=== PATIENT | male | born 1930 | race Caucasian/White ===

== ENCOUNTER 2021-04-15 18:44 | Inpatient (IN) ==
[2021-04-15] MEDS ORDERED: dimenhyDRINATE 50 MG TABLET PO PRN (20:56)
[2021-04-16] MEDS: *HR* Enoxaparin 40 MG/0.4 ML SYRINGE SQ SCH (06:49)
[2021-04-16 07:25] LABS: Basophils % 0.5 %; Eosinophils # 0.1 K/mcL (0.0-0.6); Eosinophils % 1.8 %; Immature Granulocytes % 0.3 % (0-4); Lymphocytes # 0.7 K/mcL (0.6-4.6); Lymphocytes % 8.9 %; Mean Corpuscular HGB Conc 31.9 g/dL (31.6-35.5); Mean Corpuscular Hemoglobin 28.5 pg (28.0-33.3); Mean Corpuscular Volume 89.2 fL (83.0-100.0); Mean Platelet Volume 9.6 fL (9.4-12.4); Monocytes # 0.6 K/mcL (0.0-1.3); Monocytes % 8.4 %; Neutrophils # 6.1 K/mcL (1.6-8.9); Platelet Count 378 K/mcL (140-400); Red Blood Count 5.27 M/mcL (4.19-5.50); Red Cell Distribution Width 12.9 % (11.5-14.5); Segmented Neutrophils % 80.1 %; White Blood Count 7.6 K/mcL (4.3-11.1)
[2021-04-16 08:32] LABS: VBG Chloride 108 mEq/L (98-107)
[2021-04-16 09:06] LABS: BUN/Creatinine Ratio 38 (6-26); Blood Urea Nitrogen 33 mg/dL (8-23); Carbon Dioxide 34 mEq/L (23-29); Glucose 92 mg/dL (70-105); eGFR For African Americans > 60 (> 60); eGFR For Non-African Americans > 60 (> 60)
[2021-04-16] MEDS: Lisinopril-HCTZ 20-12.5mg TABLET PO SCH (09:24)
[2021-04-16] MEDS: amLODIPine 5 MG TABLET PO SCH (09:25)
[2021-04-16] MEDS: Aspirin 81 MG TAB.CHEW PO SCH (09:25)
[2021-04-16] MEDS: Patient Taking Own Medication 1 EACH PO SCH (09:25)
[2021-04-16] MEDS: Multivit/Ca/Min/Fe/FA 1 TAB TABLET PO SCH (09:25)
[2021-04-16] MEDS ORDERED: D5% in Lactated Ringers 1,000 ML IVC SCH (14:15)
[2021-04-16] MEDS: D5% in 0.45% NACL w KCl 20 MEQ/1,000 ML MLS IVC SCH (15:04)
[2021-04-17] MEDS: D5% in 0.45% NACL w KCl 20 MEQ/1,000 ML MLS IVC SCH ×2 (05:45→19:36)
[2021-04-17] MEDS: *HR* Enoxaparin 40 MG/0.4 ML SYRINGE SQ SCH (06:47)
[2021-04-17 07:00] LABS: BUN/Creatinine Ratio 38 (6-26); Blood Urea Nitrogen 30 mg/dL (8-23); Calcium 8.8 mg/dL (8.6-10.3); Carbon Dioxide 32 mEq/L (23-29); Chloride 104 mEq/L (98-107); Glucose 95 mg/dL (70-105); Osmolality,Calculated 302 (280-300); Potassium 3.3 mEq/L (3.5-5.1); Sodium 143 mEq/L (136-145); eGFR For African Americans > 60 (> 60); eGFR For Non-African Americans > 60 (> 60)
[2021-04-17] MEDS: Aspirin 81 MG TAB.CHEW PO SCH (08:49)
[2021-04-17] MEDS: amLODIPine 5 MG TABLET PO SCH (08:49)
[2021-04-17] MEDS: Multivit/Ca/Min/Fe/FA 1 TAB TABLET PO SCH (08:49)
[2021-04-17] MEDS: Lisinopril-HCTZ 20-12.5mg TABLET PO SCH (08:49)
[2021-04-17] MEDS: Patient Taking Own Medication 1 EACH PO SCH (10:01)
[2021-04-18] MEDS: *HR* Enoxaparin 40 MG/0.4 ML SYRINGE SQ SCH (05:11)
[2021-04-18] MEDS: D5% in 0.45% NACL w KCl 20 MEQ/1,000 ML MLS IVC SCH ×2 (05:11→23:07)
[2021-04-18] MEDS: Patient Taking Own Medication 1 EACH PO SCH (08:14)
[2021-04-18] MEDS: Multivit/Ca/Min/Fe/FA 1 TAB TABLET PO SCH (08:15)
[2021-04-18] MEDS: Aspirin 81 MG TAB.CHEW PO SCH (08:15)
[2021-04-18] MEDS: Lisinopril-HCTZ 20-12.5mg TABLET PO SCH (08:15)
[2021-04-18] MEDS: amLODIPine 5 MG TABLET PO SCH (08:15)
[2021-04-18 08:28] LABS: BUN/Creatinine Ratio 29 (6-26); Blood Urea Nitrogen 21 mg/dL (8-23); Calcium 8.6 mg/dL (8.6-10.3); Carbon Dioxide 30 mEq/L (23-29); Chloride 107 mEq/L (98-107); Glucose 104 mg/dL (70-105); Osmolality,Calculated 299 (280-300); Potassium 3.7 mEq/L (3.5-5.1); Sodium 143 mEq/L (136-145); eGFR For African Americans > 60 (> 60); eGFR For Non-African Americans > 60 (> 60)
[2021-04-19] MEDS: *HR* Enoxaparin 40 MG/0.4 ML SYRINGE SQ SCH (06:42)
[2021-04-19] MEDS: amLODIPine 5 MG TABLET PO SCH (09:29)
[2021-04-19] MEDS: Lisinopril-HCTZ 20-12.5mg TABLET PO SCH (09:29)
[2021-04-19] MEDS: Aspirin 81 MG TAB.CHEW PO SCH (09:29)
[2021-04-19] MEDS: Multivit/Ca/Min/Fe/FA 1 TAB TABLET PO SCH (09:30)
[2021-04-19] MEDS: Patient Taking Own Medication 1 EACH PO SCH (09:30)
[2021-04-19] MEDS: D5% in 0.45% NACL w KCl 20 MEQ/1,000 ML MLS IVC SCH ×2 (12:01→22:54)
[2021-04-20] MEDS: *HR* Enoxaparin 40 MG/0.4 ML SYRINGE SQ SCH (06:54)
[2021-04-20 07:52] LABS: BUN/Creatinine Ratio 25 (6-26); Blood Urea Nitrogen 19 mg/dL (8-23); Calcium 8.3 mg/dL (8.6-10.3); Carbon Dioxide 27 mEq/L (23-29); Chloride 106 mEq/L (98-107); Glucose 100 mg/dL (70-105); Osmolality,Calculated 288 (280-300); Potassium 3.4 mEq/L (3.5-5.1); Sodium 138 mEq/L (136-145); eGFR For African Americans > 60 (> 60); eGFR For Non-African Americans > 60 (> 60)
[2021-04-20] MEDS: Aspirin 81 MG TAB.CHEW PO SCH (08:29)
[2021-04-20] MEDS: Lisinopril-HCTZ 20-12.5mg TABLET PO SCH (08:29)
[2021-04-20] MEDS: Multivit/Ca/Min/Fe/FA 1 TAB TABLET PO SCH (08:29)
[2021-04-20] MEDS: amLODIPine 5 MG TABLET PO SCH (08:30)
[2021-04-20] MEDS: Patient Taking Own Medication 1 EACH PO SCH (08:30)
[2021-04-20] MEDS: Potassium Chloride Elixir 20 MEQ/15 ML UDC PO SCH (12:39)
[2021-04-21] MEDS: *HR* Enoxaparin 40 MG/0.4 ML SYRINGE SQ SCH (05:56)
[2021-04-21] MEDS: Aspirin 81 MG TAB.CHEW PO SCH (09:33)
[2021-04-21] MEDS: Lisinopril-HCTZ 20-12.5mg TABLET PO SCH (09:33)
[2021-04-21] MEDS: Potassium Chloride Elixir 20 MEQ/15 ML UDC PO SCH (09:34)
[2021-04-21] MEDS: Patient Taking Own Medication 1 EACH PO SCH (09:34)
[2021-04-21] MEDS: amLODIPine 5 MG TABLET PO SCH (09:34)
[2021-04-21] MEDS: Multivit/Ca/Min/Fe/FA 1 TAB TABLET PO SCH (09:34)
[2021-04-22] MEDS: *HR* Enoxaparin 40 MG/0.4 ML SYRINGE SQ SCH (06:04)
[2021-04-22] MEDS: Lisinopril-HCTZ 20-12.5mg TABLET PO SCH (08:46)
[2021-04-22] MEDS: Multivit/Ca/Min/Fe/FA 1 TAB TABLET PO SCH (08:47)
[2021-04-22] MEDS: amLODIPine 5 MG TABLET PO SCH (08:47)
[2021-04-22] MEDS: Aspirin 81 MG TAB.CHEW PO SCH (08:47)
[2021-04-22] MEDS: Patient Taking Own Medication 1 EACH PO SCH (08:47)
[2021-04-22] MEDS: Potassium Chloride Elixir 20 MEQ/15 ML UDC PO SCH (08:48)
[2021-04-23] MEDS: *HR* Enoxaparin 40 MG/0.4 ML SYRINGE SQ SCH (05:45)
[2021-04-23] MEDS: Multivit/Ca/Min/Fe/FA 1 TAB TABLET PO SCH (10:41)
[2021-04-23] MEDS: Aspirin 81 MG TAB.CHEW PO SCH (10:41)
[2021-04-23] MEDS: Potassium Chloride Elixir 20 MEQ/15 ML UDC PO SCH (10:42)
[2021-04-23] MEDS: Lisinopril-HCTZ 20-12.5mg TABLET PO SCH (10:42)
[2021-04-23] MEDS: amLODIPine 5 MG TABLET PO SCH (10:42)
[2021-04-23] MEDS: Patient Taking Own Medication 1 EACH PO SCH (10:43)
[2021-04-24] MEDS: *HR* Enoxaparin 40 MG/0.4 ML SYRINGE SQ SCH (06:25)
[2021-04-24] MEDS: Patient Taking Own Medication 1 EACH PO SCH (09:45)
[2021-04-24] MEDS: Aspirin 81 MG TAB.CHEW PO SCH (10:01)
[2021-04-24] MEDS: Potassium Chloride Elixir 20 MEQ/15 ML UDC PO SCH (10:01)
[2021-04-24] MEDS: Lisinopril-HCTZ 20-12.5mg TABLET PO SCH (10:02)
[2021-04-24] MEDS: amLODIPine 5 MG TABLET PO SCH (10:02)
[2021-04-24] MEDS: Multivit/Ca/Min/Fe/FA 1 TAB TABLET PO SCH (10:02)
[2021-04-25] MEDS: Potassium Chloride Elixir 20 MEQ/15 ML UDC PO SCH (07:37)
[2021-04-25] MEDS: Lisinopril-HCTZ 20-12.5mg TABLET PO SCH (07:37)
[2021-04-25] MEDS: Aspirin 81 MG TAB.CHEW PO SCH (07:37)
[2021-04-25] MEDS: *HR* Enoxaparin 40 MG/0.4 ML SYRINGE SQ SCH (07:37)
[2021-04-25] MEDS: Multivit/Ca/Min/Fe/FA 1 TAB TABLET PO SCH (07:38)
[2021-04-25] MEDS: amLODIPine 5 MG TABLET PO SCH (07:38)
[2021-04-25] MEDS: Patient Taking Own Medication 1 EACH PO SCH (07:39)
[2021-04-25 07:56] LABS: Hematocrit 42.8 % (37.5-50.1); Hemoglobin 13.7 g/dL (12.9-16.9); Mean Corpuscular Hemoglobin 28.1 pg (28.0-33.3); Mean Corpuscular Volume 87.9 fL (83.0-100.0); Mean Platelet Volume 10.4 fL (9.4-12.4); Platelet Count 361 K/mcL (140-400); Red Blood Count 4.87 M/mcL (4.19-5.50); Red Cell Distribution Width 13.2 % (11.5-14.5)
[2021-04-25 08:18] LABS: BUN/Creatinine Ratio 37 (6-26); Blood Urea Nitrogen 30 mg/dL (8-23); Calcium 8.9 mg/dL (8.6-10.3); Carbon Dioxide 29 mEq/L (23-29); Chloride 110 mEq/L (98-107); Glucose 90 mg/dL (70-105); Magnesium 1.8 mg/dL (1.6-2.6); Osmolality,Calculated 306 (280-300); Potassium 3.5 mEq/L (3.5-5.1); Sodium 145 mEq/L (136-145); eGFR For African Americans > 60 (> 60); eGFR For Non-African Americans > 60 (> 60)
[2021-04-26] MEDS: Lisinopril-HCTZ 20-12.5mg TABLET PO SCH (10:35)
[2021-04-26] MEDS: Aspirin 81 MG TAB.CHEW PO SCH (10:36)
[2021-04-26] MEDS: Multivit/Ca/Min/Fe/FA 1 TAB TABLET PO SCH (10:36)
[2021-04-26] MEDS: Patient Taking Own Medication 1 EACH PO SCH (10:37)
[2021-04-26] MEDS: Potassium Chloride Elixir 20 MEQ/15 ML UDC PO SCH (10:38)
[2021-04-26] MEDS: amLODIPine 5 MG TABLET PO SCH (10:38)
[2021-04-26] MEDS: *HR* Enoxaparin 40 MG/0.4 ML SYRINGE SQ SCH (10:39)
[2021-04-27] MEDS: *HR* Enoxaparin 40 MG/0.4 ML SYRINGE SQ SCH (06:54)
[2021-04-27] MEDS: Patient Taking Own Medication 1 EACH PO SCH (08:04)
[2021-04-27] MEDS: amLODIPine 5 MG TABLET PO SCH (08:06)
[2021-04-27] MEDS: Potassium Chloride Elixir 20 MEQ/15 ML UDC PO SCH (08:06)
[2021-04-27] MEDS: Aspirin 81 MG TAB.CHEW PO SCH (08:07)
[2021-04-27] MEDS: Lisinopril-HCTZ 20-12.5mg TABLET PO SCH (08:07)
[2021-04-28] MEDS: *HR* Enoxaparin 40 MG/0.4 ML SYRINGE SQ SCH (05:58)
[2021-04-28] MEDS: Patient Taking Own Medication 1 EACH PO SCH (08:33)
[2021-04-28] MEDS: amLODIPine 5 MG TABLET PO SCH (08:41)
[2021-04-28] MEDS: Aspirin 81 MG TAB.CHEW PO SCH (08:41)
[2021-04-28] MEDS: Potassium Chloride Elixir 20 MEQ/15 ML UDC PO SCH (08:41)
[2021-04-28] MEDS: Lisinopril-HCTZ 20-12.5mg TABLET PO SCH (08:41)
[2021-04-29] MEDS: *HR* Enoxaparin 40 MG/0.4 ML SYRINGE SQ SCH (05:47)
[2021-04-29 07:34] LABS: BUN/Creatinine Ratio 36 (6-26); Blood Urea Nitrogen 32 mg/dL (8-23); Carbon Dioxide 29 mEq/L (23-29); Chloride 111 mEq/L (98-107); Glucose 90 mg/dL (70-105); Osmolality,Calculated 312 (280-300); Potassium 3.7 mEq/L (3.5-5.1); Sodium 148 mEq/L (136-145); eGFR For African Americans > 60 (> 60); eGFR For Non-African Americans > 60 (> 60)
[2021-04-29] MEDS: Potassium Chloride Elixir 20 MEQ/15 ML UDC PO SCH (08:02)
[2021-04-29] MEDS: Lisinopril-HCTZ 20-12.5mg TABLET PO SCH (08:02)
[2021-04-29] MEDS: amLODIPine 5 MG TABLET PO SCH (08:02)
[2021-04-29] MEDS: Aspirin 81 MG TAB.CHEW PO SCH (08:02)
[2021-04-29] MEDS: Patient Taking Own Medication 1 EACH PO SCH (08:03)
[2021-04-29 09:45] LABS: Hemoglobin 14.8 g/dL (12.9-16.9); Mean Corpuscular HGB Conc 31.5 g/dL (31.6-35.5); Mean Corpuscular Hemoglobin 28.2 pg (28.0-33.3); Mean Corpuscular Volume 89.7 fL (83.0-100.0); Platelet Count 346 K/mcL (140-400); Red Blood Count 5.24 M/mcL (4.19-5.50); Red Cell Distribution Width 13.4 % (11.5-14.5); White Blood Count 8.3 K/mcL (4.3-11.1)
[2021-04-30] MEDS: *HR* Enoxaparin 40 MG/0.4 ML SYRINGE SQ SCH (05:24)
[2021-04-30] MEDS: Lisinopril-HCTZ 20-12.5mg TABLET PO SCH (09:16)
[2021-04-30] MEDS: Aspirin 81 MG TAB.CHEW PO SCH (09:16)
[2021-04-30] MEDS: Patient Taking Own Medication 1 EACH PO SCH (09:16)
[2021-04-30] MEDS: amLODIPine 5 MG TABLET PO SCH (09:16)
[2021-04-30] MEDS: Potassium Chloride Elixir 20 MEQ/15 ML UDC PO SCH (09:16)
[2021-05-01] MEDS: *HR* Enoxaparin 40 MG/0.4 ML SYRINGE SQ SCH (06:03)
[2021-05-01] MEDS: Patient Taking Own Medication 1 EACH PO SCH (09:26)
[2021-05-01] MEDS: Lisinopril-HCTZ 20-12.5mg TABLET PO SCH ×2 (09:26→09:41)
[2021-05-01] MEDS: Aspirin 81 MG TAB.CHEW PO SCH (09:26)
[2021-05-01] MEDS: amLODIPine 5 MG TABLET PO SCH ×2 (09:26→09:42)
[2021-05-01] MEDS: Potassium Chloride Elixir 20 MEQ/15 ML UDC PO SCH (09:26)
[2021-05-01] MEDS ORDERED: 0.9 % Sodium Chloride 250 ML IVC ONE (09:40)
[2021-05-02] MEDS: *HR* Enoxaparin 40 MG/0.4 ML SYRINGE SQ SCH (05:14)
[2021-05-02] MEDS: Aspirin 81 MG TAB.CHEW PO SCH (10:30)
[2021-05-02] MEDS: Potassium Chloride Elixir 20 MEQ/15 ML UDC PO SCH (10:30)
[2021-05-02] MEDS: Patient Taking Own Medication 1 EACH PO SCH (10:31)
[2021-05-03] MEDS: *HR* Enoxaparin 40 MG/0.4 ML SYRINGE SQ SCH (05:55)
[2021-05-03] MEDS: Aspirin 81 MG TAB.CHEW PO SCH (08:57)
[2021-05-03] MEDS: Potassium Chloride Elixir 20 MEQ/15 ML UDC PO SCH (08:57)
[2021-05-03] MEDS: Lisinopril-HCTZ 20-12.5mg TABLET PO SCH (08:58)
[2021-05-03] MEDS: Patient Taking Own Medication 1 EACH PO SCH (08:58)
[2021-05-03] MEDS: amLODIPine 5 MG TABLET PO SCH (08:58)
[2021-05-04] MEDS: *HR* Enoxaparin 40 MG/0.4 ML SYRINGE SQ SCH (05:21)
[2021-05-04 08:08] LABS: Basophils # 0.1 K/mcL (0.0-0.2); Basophils % 0.6 %; Eosinophils # 0.4 K/mcL (0.0-0.6); Eosinophils % 4.4 %; Hematocrit 44.5 % (37.5-50.1); Hemoglobin 14.1 g/dL (12.9-16.9); Immature Granulocytes % 0.4 % (0-4); Lymphocytes # 0.8 K/mcL (0.6-4.6); Lymphocytes % 9.5 %; Mean Corpuscular HGB Conc 31.7 g/dL (31.6-35.5); Mean Corpuscular Volume 88.5 fL (83.0-100.0); Mean Platelet Volume 11.2 fL (9.4-12.4); Monocytes # 0.7 K/mcL (0.0-1.3); Monocytes % 9.1 %; Neutrophils # 6.2 K/mcL (1.6-8.9); Platelet Count 268 K/mcL (140-400); Red Blood Count 5.03 M/mcL (4.19-5.50); Red Cell Distribution Width 13.8 % (11.5-14.5); White Blood Count 8.1 K/mcL (4.3-11.1)
[2021-05-04 08:35] LABS: BUN/Creatinine Ratio 37 (6-26); Blood Urea Nitrogen 31 mg/dL (8-23); Calcium 8.7 mg/dL (8.6-10.3); Carbon Dioxide 27 mEq/L (23-29); Chloride 110 mEq/L (98-107); Glucose 87 mg/dL (70-105); Osmolality,Calculated 304 (280-300); Potassium 3.6 mEq/L (3.5-5.1); Sodium 144 mEq/L (136-145); eGFR For African Americans > 60 (> 60); eGFR For Non-African Americans > 60 (> 60)
[2021-05-04] MEDS: Lisinopril-HCTZ 20-12.5mg TABLET PO SCH (09:30)
[2021-05-04] MEDS: Potassium Chloride Elixir 20 MEQ/15 ML UDC PO SCH (09:30)
[2021-05-04] MEDS: amLODIPine 5 MG TABLET PO SCH (09:30)
[2021-05-04] MEDS: Patient Taking Own Medication 1 EACH PO SCH (09:30)
[2021-05-04] MEDS: Aspirin 81 MG TAB.CHEW PO SCH (09:30)
[2021-05-05] MEDS: *HR* Enoxaparin 40 MG/0.4 ML SYRINGE SQ SCH (05:02)
[2021-05-05] MEDS: Aspirin 81 MG TAB.CHEW PO SCH (09:16)
[2021-05-05] MEDS: Lisinopril-HCTZ 20-12.5mg TABLET PO SCH (09:17)
[2021-05-05] MEDS: amLODIPine 5 MG TABLET PO SCH (09:19)
[2021-05-05] MEDS: Patient Taking Own Medication 1 EACH PO SCH (09:19)
[2021-05-05] MEDS: Potassium Chloride Elixir 20 MEQ/15 ML UDC PO SCH ×2 (09:33→09:44)
[2021-05-06] MEDS: *HR* Enoxaparin 40 MG/0.4 ML SYRINGE SQ SCH ×2 (05:41→06:04)
[2021-05-06] MEDS: amLODIPine 5 MG TABLET PO SCH (08:44)
[2021-05-06] MEDS: Potassium Chloride Elixir 20 MEQ/15 ML UDC PO SCH (08:44)
[2021-05-06] MEDS: Lisinopril-HCTZ 20-12.5mg TABLET PO SCH (08:44)
[2021-05-06] MEDS: Patient Taking Own Medication 1 EACH PO SCH (08:44)
[2021-05-06] MEDS: Aspirin 81 MG TAB.CHEW PO SCH (08:44)
[2021-05-07] MEDS: *HR* Enoxaparin 40 MG/0.4 ML SYRINGE SQ SCH (05:51)
[2021-05-07] MEDS: Aspirin 81 MG TAB.CHEW PO SCH (07:33)
[2021-05-07] MEDS: amLODIPine 5 MG TABLET PO SCH (07:33)
[2021-05-07] MEDS: Potassium Chloride Elixir 20 MEQ/15 ML UDC PO SCH (07:34)
[2021-05-07] MEDS: Patient Taking Own Medication 1 EACH PO SCH (07:34)
[2021-05-07] MEDS: Lisinopril-HCTZ 20-12.5mg TABLET PO SCH (07:34)
[2021-05-08] MEDS: *HR* Enoxaparin 40 MG/0.4 ML SYRINGE SQ SCH (06:14)
[2021-05-08 08:23] LABS: Hematocrit 40.6 % (37.5-50.1); Hemoglobin 13.2 g/dL (12.9-16.9); Mean Corpuscular HGB Conc 32.5 g/dL (31.6-35.5); Mean Corpuscular Hemoglobin 28.3 pg (28.0-33.3); Mean Corpuscular Volume 86.9 fL (83.0-100.0); Mean Platelet Volume 10.7 fL (9.4-12.4); Platelet Count 261 K/mcL (140-400); Red Blood Count 4.67 M/mcL (4.19-5.50); White Blood Count 7.7 K/mcL (4.3-11.1)
[2021-05-08] MEDS: Lisinopril-HCTZ 20-12.5mg TABLET PO SCH (08:26)
[2021-05-08] MEDS: Aspirin 81 MG TAB.CHEW PO SCH (08:26)
[2021-05-08] MEDS: amLODIPine 5 MG TABLET PO SCH (08:26)
[2021-05-08] MEDS: Potassium Chloride Elixir 20 MEQ/15 ML UDC PO SCH (08:26)
[2021-05-08 08:46] LABS: BUN/Creatinine Ratio 28 (6-26); Blood Urea Nitrogen 22 mg/dL (8-23); Calcium 8.5 mg/dL (8.6-10.3); Carbon Dioxide 25 mEq/L (23-29); Chloride 110 mEq/L (98-107); Glucose 90 mg/dL (70-105); Osmolality,Calculated 299 (280-300); Potassium 3.4 mEq/L (3.5-5.1); Sodium 143 mEq/L (136-145); eGFR For African Americans > 60 (> 60); eGFR For Non-African Americans > 60 (> 60)
[2021-05-08] MEDS ORDERED: Hyoscyamine SL 0.125 MG TAB.SUBL SL PRN (11:01)
[2021-05-08] MEDS: Patient Taking Own Medication 1 EACH PO SCH (15:09)
[2021-05-09] MEDS: *HR* Enoxaparin 40 MG/0.4 ML SYRINGE SQ SCH (05:53)
[2021-05-09 07:55] VITALS: RESP 16; TEMP 98.5
[2021-05-09] MEDS: Aspirin 81 MG TAB.CHEW PO SCH (11:10)
[2021-05-09] MEDS: amLODIPine 5 MG TABLET PO SCH (11:10)
[2021-05-09] MEDS: Potassium Chloride Elixir 20 MEQ/15 ML UDC PO SCH (11:10)
[2021-05-09] MEDS: Patient Taking Own Medication 1 EACH PO SCH (11:10)
[2021-05-09] MEDS: Lisinopril-HCTZ 20-12.5mg TABLET PO SCH (11:10)
[2021-05-09] MEDS ORDERED: Isovue-370 500 ML BOTTLE IVP ONE (15:06)
[2021-05-09 16:32] LABS: Basophils # 0.1 K/mcL (0.0-0.2); Basophils % 0.8 %; Eosinophils # 0.3 K/mcL (0.0-0.6); Eosinophils % 3.8 %; Hematocrit 41.3 % (37.5-50.1); Hemoglobin 12.9 g/dL (12.9-16.9); Immature Granulocytes % 0.5 % (0-4); Lymphocytes # 0.6 K/mcL (0.6-4.6); Lymphocytes % 9.4 %; Mean Corpuscular HGB Conc 31.2 g/dL (31.6-35.5); Mean Corpuscular Hemoglobin 28.5 pg (28.0-33.3); Mean Corpuscular Volume 91.2 fL (83.0-100.0); Mean Platelet Volume 10.8 fL (9.4-12.4); Monocytes # 0.7 K/mcL (0.0-1.3); Monocytes % 9.9 %; Platelet Count 246 K/mcL (140-400); Red Blood Count 4.53 M/mcL (4.19-5.50); Red Cell Distribution Width 13.9 % (11.5-14.5); Segmented Neutrophils % 75.6 %; White Blood Count 6.6 K/mcL (4.3-11.1)
[2021-05-09 16:48] LABS: BUN/Creatinine Ratio 25 (6-26); Blood Urea Nitrogen 21 mg/dL (8-23); Calcium 8.2 mg/dL (8.6-10.3); Carbon Dioxide 25 mEq/L (23-29); Chloride 111 mEq/L (98-107); Glucose 116 mg/dL (70-105); Osmolality,Calculated 300 (280-300); Potassium 3.3 mEq/L (3.5-5.1); Sodium 143 mEq/L (136-145); eGFR For African Americans > 60 (> 60); eGFR For Non-African Americans > 60 (> 60)
[2021-05-09 19:17] VITALS: BP 117/70; PULSE 71; O2SAT 96
[2021-05-10] MEDS ORDERED: Megestrol Acetate 400 MG/10 ML UDC PO SCH (09:00)
== END 2021-05-09 22:50 | disposition short-term general hospital (02) ==
LOC: INPPIK 20:42
PROVIDERS: ADMIT Family Medicine; ATTEND Family Medicine

== ENCOUNTER 2021-05-12 22:43 | Inpatient (IN) ==
[2021-05-14] MEDS: Aspirin 81 MG TAB.CHEW PO SCH (08:22)
[2021-05-14] MEDS: amLODIPine 5 MG TABLET PO SCH (08:22)
[2021-05-14] MEDS: lisinopriL 20 MG TABLET PO SCH (08:22)
[2021-05-14] MEDS ORDERED: *HR* HYDROcodone/Acet 5/325 mg TABLET PO PRN (16:52)
[2021-05-15 07:11] LABS: Basophils % 0.5 %; Eosinophils # 0.4 K/mcL (0.0-0.6); Eosinophils % 4.9 %; Hematocrit 41.3 % (37.5-50.1); Hemoglobin 13.2 g/dL (12.9-16.9); Immature Granulocytes % 0.5 % (0-4); Lymphocytes # 0.6 K/mcL (0.6-4.6); Lymphocytes % 7.6 %; Mean Corpuscular Hemoglobin 28.1 pg (28.0-33.3); Mean Corpuscular Volume 87.9 fL (83.0-100.0); Mean Platelet Volume 10.2 fL (9.4-12.4); Monocytes # 0.5 K/mcL (0.0-1.3); Platelet Count 256 K/mcL (140-400); Red Cell Distribution Width 14.2 % (11.5-14.5); Segmented Neutrophils % 79.5 %; White Blood Count 7.5 K/mcL (4.3-11.1)
[2021-05-15 07:28] LABS: BUN/Creatinine Ratio 19 (6-26); Blood Urea Nitrogen 15 mg/dL (8-23); Calcium 8.3 mg/dL (8.6-10.3); Carbon Dioxide 31 mEq/L (23-29); Chloride 106 mEq/L (98-107); Glucose 91 mg/dL (70-105); Osmolality,Calculated 292 (280-300); Potassium 3.7 mEq/L (3.5-5.1); Sodium 141 mEq/L (136-145); eGFR For African Americans > 60 (> 60); eGFR For Non-African Americans > 60 (> 60)
[2021-05-15] MEDS: Aspirin 81 MG TAB.CHEW PO SCH (08:41)
[2021-05-15] MEDS: lisinopriL 20 MG TABLET PO SCH (08:41)
[2021-05-15] MEDS: amLODIPine 5 MG TABLET PO SCH (08:41)
[2021-05-15] MEDS ORDERED: Saline Nasal Spray 44 ML BOTTLE NS PRN (14:29)
[2021-05-16] MEDS: Aspirin 81 MG TAB.CHEW PO SCH (09:13)
[2021-05-16] MEDS: lisinopriL 20 MG TABLET PO SCH (09:13)
[2021-05-16] MEDS: amLODIPine 5 MG TABLET PO SCH (09:13)
[2021-05-16] MEDS: Acetaminophen 325 MG TABLET PO PRN (13:46)
[2021-05-17 07:58] LABS: Hematocrit 39.2 % (37.5-50.1); Hemoglobin 12.7 g/dL (12.9-16.9); Mean Corpuscular HGB Conc 32.4 g/dL (31.6-35.5); Mean Corpuscular Hemoglobin 28.4 pg (28.0-33.3); Mean Corpuscular Volume 87.7 fL (83.0-100.0); Mean Platelet Volume 9.9 fL (9.4-12.4); Platelet Count 273 K/mcL (140-400); Red Blood Count 4.47 M/mcL (4.19-5.50); Red Cell Distribution Width 14.4 % (11.5-14.5); White Blood Count 9.5 K/mcL (4.3-11.1)
[2021-05-17 08:12] LABS: BUN/Creatinine Ratio 21 (6-26); Blood Urea Nitrogen 16 mg/dL (8-23); Calcium 8.5 mg/dL (8.6-10.3); Carbon Dioxide 29 mEq/L (23-29); Chloride 105 mEq/L (98-107); Glucose 93 mg/dL (70-105); Osmolality,Calculated 291 (280-300); Potassium 3.7 mEq/L (3.5-5.1); Sodium 140 mEq/L (136-145); eGFR For African Americans > 60 (> 60); eGFR For Non-African Americans > 60 (> 60)
[2021-05-17] MEDS: Aspirin 81 MG TAB.CHEW PO SCH (08:22)
[2021-05-17] MEDS: lisinopriL 20 MG TABLET PO SCH (08:22)
[2021-05-17] MEDS: amLODIPine 5 MG TABLET PO SCH (08:22)
[2021-05-17] MEDS: Acetaminophen 325 MG TABLET PO PRN (15:40)
[2021-05-18] MEDS: amLODIPine 5 MG TABLET PO SCH (09:19)
[2021-05-18] MEDS: Aspirin 81 MG TAB.CHEW PO SCH (09:19)
[2021-05-18] MEDS: lisinopriL 20 MG TABLET PO SCH (09:19)
[2021-05-19] MEDS: lisinopriL 20 MG TABLET PO SCH (09:26)
[2021-05-19] MEDS: Aspirin 81 MG TAB.CHEW PO SCH (09:26)
[2021-05-19] MEDS: amLODIPine 5 MG TABLET PO SCH (09:26)
[2021-05-20 02:44] LABS: Alanine Aminotransferase 23 Units/L (7-52); Albumin/Globulin Ratio 1.1 (1.1-2.2); Alkaline Phosphatase 81 Units/L (34-104); Aspartate Amino Transferase 30 Units/L (13-39); BUN/Creatinine Ratio 25 (6-26); Blood Urea Nitrogen 24 mg/dL (8-23); Calcium 8.6 mg/dL (8.6-10.3); Carbon Dioxide 28 mEq/L (23-29); Chloride 102 mEq/L (98-107); Globulin 2.7 g/dL (2.4-3.5); Glucose 90 mg/dL (70-105); Magnesium 1.6 mg/dL (1.6-2.6); Osmolality,Calculated 288 (280-300); Potassium 3.7 mEq/L (3.5-5.1); Sodium 137 mEq/L (136-145); Total Protein 5.7 g/dL (6.4-8.9); eGFR For African Americans > 60 (> 60); eGFR For Non-African Americans > 60 (> 60)
[2021-05-20 02:47] LABS: Basophils # 0.1 K/mcL (0.0-0.2); Basophils % 0.7 %; Eosinophils # 0.2 K/mcL (0.0-0.6); Eosinophils % 2.4 %; Hematocrit 36.4 % (37.5-50.1); Hemoglobin 11.7 g/dL (12.9-16.9); Immature Granulocytes % 0.4 % (0-4); Lymphocytes # 0.7 K/mcL (0.6-4.6); Lymphocytes % 7.5 %; Mean Corpuscular HGB Conc 32.1 g/dL (31.6-35.5); Mean Corpuscular Hemoglobin 28.5 pg (28.0-33.3); Mean Corpuscular Volume 88.6 fL (83.0-100.0); Mean Platelet Volume 9.9 fL (9.4-12.4); Monocytes # 0.8 K/mcL (0.0-1.3); Monocytes % 7.9 %; Neutrophils # 7.9 K/mcL (1.6-8.9); Platelet Count 307 K/mcL (140-400); Red Blood Count 4.11 M/mcL (4.19-5.50); Red Cell Distribution Width 14.8 % (11.5-14.5); Segmented Neutrophils % 81.1 %; White Blood Count 9.7 K/mcL (4.3-11.1)
[2021-05-20 02:57] LABS: INR 1.5; Prothrombin Time 16.2 Seconds (9.4-12.1)
[2021-05-20] MEDS: amLODIPine 5 MG TABLET PO SCH (11:17)
[2021-05-20] MEDS: Aspirin 81 MG TAB.CHEW PO SCH (11:17)
[2021-05-20] MEDS: lisinopriL 20 MG TABLET PO SCH (11:19)
[2021-05-20] MEDS ORDERED: *HR* LORazepam 2 MG/ML VIAL IVP PRN (12:00)
[2021-05-20] MEDS ORDERED: *HR* LORazepam 2 MG/ML VIAL IM PRN (12:04)
[2021-05-20] MEDS: QUEtiapine Fumarate 25 MG TABLET PO SCH (20:33)
[2021-05-21] MEDS: Aspirin 81 MG TAB.CHEW PO SCH (08:46)
[2021-05-21] MEDS: amLODIPine 5 MG TABLET PO SCH (08:46)
[2021-05-21] MEDS: lisinopriL 20 MG TABLET PO SCH (08:46)
[2021-05-21 11:23] LABS: Basophils # 0.1 K/mcL (0.0-0.2); Basophils % 0.6 %; Eosinophils # 0.4 K/mcL (0.0-0.6); Eosinophils % 4.4 %; Hematocrit 41.5 % (37.5-50.1); Hemoglobin 12.9 g/dL (12.9-16.9); Immature Granulocytes % 0.4 % (0-4); Lymphocytes # 0.9 K/mcL (0.6-4.6); Lymphocytes % 11.2 %; Mean Corpuscular HGB Conc 31.1 g/dL (31.6-35.5); Mean Corpuscular Hemoglobin 27.6 pg (28.0-33.3); Mean Corpuscular Volume 88.9 fL (83.0-100.0); Mean Platelet Volume 9.9 fL (9.4-12.4); Monocytes # 0.7 K/mcL (0.0-1.3); Monocytes % 8.1 %; Neutrophils # 6.4 K/mcL (1.6-8.9); Platelet Count 323 K/mcL (140-400); Red Blood Count 4.67 M/mcL (4.19-5.50); Red Cell Distribution Width 15.2 % (11.5-14.5); Segmented Neutrophils % 75.3 %; White Blood Count 8.4 K/mcL (4.3-11.1)
[2021-05-21 12:09] LABS: BUN/Creatinine Ratio 21 (6-26); Blood Urea Nitrogen 23 mg/dL (8-23); Calcium 8.5 mg/dL (8.6-10.3); Carbon Dioxide 29 mEq/L (23-29); Chloride 104 mEq/L (98-107); Glucose 88 mg/dL (70-105); Osmolality,Calculated 295 (280-300); Potassium 3.5 mEq/L (3.5-5.1); Sodium 141 mEq/L (136-145); eGFR For African Americans > 60 (> 60); eGFR For Non-African Americans > 60 (> 60)
[2021-05-21] MEDS: QUEtiapine Fumarate 25 MG TABLET PO SCH (20:30)
[2021-05-22] MEDS: lisinopriL 20 MG TABLET PO SCH (07:54)
[2021-05-22] MEDS: amLODIPine 5 MG TABLET PO SCH (07:54)
[2021-05-22] MEDS: Aspirin 81 MG TAB.CHEW PO SCH (07:55)
[2021-05-22] MEDS: QUEtiapine Fumarate 25 MG TABLET PO SCH (20:44)
[2021-05-23] MEDS: Aspirin 81 MG TAB.CHEW PO SCH (08:23)
[2021-05-23] MEDS: lisinopriL 20 MG TABLET PO SCH (08:23)
[2021-05-23] MEDS: amLODIPine 5 MG TABLET PO SCH (08:23)
[2021-05-23 08:58] LABS: Basophils % 0.6 %; Eosinophils # 0.3 K/mcL (0.0-0.6); Eosinophils % 4.8 %; Hematocrit 37.1 % (37.5-50.1); Hemoglobin 11.6 g/dL (12.9-16.9); Immature Granulocytes % 0.5 % (0-4); Lymphocytes # 0.6 K/mcL (0.6-4.6); Lymphocytes % 9.7 %; Mean Corpuscular HGB Conc 31.3 g/dL (31.6-35.5); Mean Corpuscular Hemoglobin 27.8 pg (28.0-33.3); Mean Corpuscular Volume 88.8 fL (83.0-100.0); Monocytes # 0.4 K/mcL (0.0-1.3); Monocytes % 6.2 %; Neutrophils # 5.2 K/mcL (1.6-8.9); Platelet Count 281 K/mcL (140-400); Red Blood Count 4.18 M/mcL (4.19-5.50); Red Cell Distribution Width 15.3 % (11.5-14.5); Segmented Neutrophils % 78.2 %; White Blood Count 6.6 K/mcL (4.3-11.1)
[2021-05-23 09:08] LABS: Alanine Aminotransferase 34 Units/L (7-52); Albumin 2.9 g/dL (3.5-5.7); Albumin/Globulin Ratio 1.1 (1.1-2.2); Alkaline Phosphatase 73 Units/L (34-104); Aspartate Amino Transferase 39 Units/L (13-39); BUN/Creatinine Ratio 33 (6-26); Bilirubin,Total 0.9 mg/dL (0.3-1.0); Blood Urea Nitrogen 26 mg/dL (8-23); Calcium 8.3 mg/dL (8.6-10.3); Carbon Dioxide 30 mEq/L (23-29); Chloride 105 mEq/L (98-107); Globulin 2.6 g/dL (2.4-3.5); Glucose 108 mg/dL (70-105); Magnesium 1.6 mg/dL (1.6-2.6); Osmolality,Calculated 295 (280-300); Potassium 4.1 mEq/L (3.5-5.1); Sodium 140 mEq/L (136-145); Total Protein 5.5 g/dL (6.4-8.9); eGFR For African Americans > 60 (> 60); eGFR For Non-African Americans > 60 (> 60)
[2021-05-23] MEDS: QUEtiapine Fumarate 25 MG TABLET PO SCH (21:15)
[2021-05-24] MEDS: Aspirin 81 MG TAB.CHEW PO SCH (09:05)
[2021-05-24] MEDS: amLODIPine 5 MG TABLET PO SCH (09:06)
[2021-05-24] MEDS: lisinopriL 20 MG TABLET PO SCH (09:06)
[2021-05-24] MEDS: QUEtiapine Fumarate 25 MG TABLET PO SCH (20:56)
[2021-05-25] MEDS: amLODIPine 5 MG TABLET PO SCH (08:51)
[2021-05-25] MEDS: Aspirin 81 MG TAB.CHEW PO SCH (08:53)
[2021-05-25] MEDS: lisinopriL 20 MG TABLET PO SCH (08:54)
[2021-05-25] MEDS ORDERED: *HR* LORazepam 0.5 MG TABLET PO PRN (17:11)
[2021-05-25] MEDS: QUEtiapine Fumarate 25 MG TABLET PO SCH (19:50)
[2021-05-26] MEDS: lisinopriL 20 MG TABLET PO SCH (10:22)
[2021-05-26] MEDS: amLODIPine 5 MG TABLET PO SCH (10:22)
[2021-05-26] MEDS: Aspirin 81 MG TAB.CHEW PO SCH (10:22)
[2021-05-26] MEDS: QUEtiapine Fumarate 25 MG TABLET PO SCH (20:19)
[2021-05-27] MEDS: amLODIPine 5 MG TABLET PO SCH (07:37)
[2021-05-27] MEDS: Aspirin 81 MG TAB.CHEW PO SCH (07:37)
[2021-05-27] MEDS: lisinopriL 20 MG TABLET PO SCH (07:38)
[2021-05-27] MEDS: Megestrol Acetate 400 MG/10 ML UDC PO SCH (09:10)
[2021-05-27] MEDS: QUEtiapine Fumarate 25 MG TABLET PO SCH (21:04)
[2021-05-28] MEDS: amLODIPine 5 MG TABLET PO SCH (08:24)
[2021-05-28] MEDS: lisinopriL 20 MG TABLET PO SCH (08:24)
[2021-05-28] MEDS: Aspirin 81 MG TAB.CHEW PO SCH (08:24)
[2021-05-28] MEDS: Megestrol Acetate 400 MG/10 ML UDC PO SCH (08:25)
[2021-05-28] MEDS: QUEtiapine Fumarate 25 MG TABLET PO SCH (20:48)
[2021-05-29 06:17] LABS: Hematocrit 31.7 % (37.5-50.1); Hemoglobin 10.1 g/dL (12.9-16.9); Mean Corpuscular HGB Conc 31.9 g/dL (31.6-35.5); Mean Corpuscular Hemoglobin 27.8 pg (28.0-33.3); Mean Corpuscular Volume 87.3 fL (83.0-100.0); Platelet Count 258 K/mcL (140-400); Red Blood Count 3.63 M/mcL (4.19-5.50); Red Cell Distribution Width 15.6 % (11.5-14.5); White Blood Count 6.7 K/mcL (4.3-11.1)
[2021-05-29 06:38] LABS: BUN/Creatinine Ratio 41 (6-26); Blood Urea Nitrogen 32 mg/dL (8-23); Calcium 8.1 mg/dL (8.6-10.3); Carbon Dioxide 27 mEq/L (23-29); Chloride 108 mEq/L (98-107); Glucose 95 mg/dL (70-105); Osmolality,Calculated 299 (280-300); Potassium 3.4 mEq/L (3.5-5.1); Sodium 141 mEq/L (136-145); eGFR For African Americans > 60 (> 60); eGFR For Non-African Americans > 60 (> 60)
[2021-05-29] MEDS ORDERED: Potassium Chloride Elixir 20 MEQ/15 ML UDC PO ONE (09:12)
[2021-05-29] MEDS: lisinopriL 20 MG TABLET PO SCH (09:20)
[2021-05-29] MEDS: Aspirin 81 MG TAB.CHEW PO SCH (09:20)
[2021-05-29] MEDS: amLODIPine 5 MG TABLET PO SCH (09:20)
[2021-05-29] MEDS: Megestrol Acetate 400 MG/10 ML UDC PO SCH (09:21)
[2021-05-29] MEDS: QUEtiapine Fumarate 25 MG TABLET PO SCH (20:19)
[2021-05-30] MEDS: Aspirin 81 MG TAB.CHEW PO SCH (09:27)
[2021-05-30] MEDS: lisinopriL 20 MG TABLET PO SCH (09:27)
[2021-05-30] MEDS: Megestrol Acetate 400 MG/10 ML UDC PO SCH (09:28)
[2021-05-30] MEDS: amLODIPine 5 MG TABLET PO SCH (09:28)
[2021-05-30] MEDS: QUEtiapine Fumarate 25 MG TABLET PO SCH (20:34)
[2021-05-31 08:15] VITALS: BP 143/74; PULSE 77; RESP 14; TEMP 98.4; O2SAT 90
[2021-05-31 08:24] LABS: Hemoglobin 11.3 g/dL (12.9-16.9); Mean Corpuscular HGB Conc 31.4 g/dL (31.6-35.5); Mean Corpuscular Hemoglobin 27.8 pg (28.0-33.3); Mean Corpuscular Volume 88.7 fL (83.0-100.0); Mean Platelet Volume 9.8 fL (9.4-12.4); Platelet Count 246 K/mcL (140-400); Red Blood Count 4.06 M/mcL (4.19-5.50); Red Cell Distribution Width 15.9 % (11.5-14.5); White Blood Count 7.1 K/mcL (4.3-11.1)
[2021-05-31] MEDS: lisinopriL 20 MG TABLET PO SCH (09:00)
[2021-05-31] MEDS: Megestrol Acetate 400 MG/10 ML UDC PO SCH (09:00)
[2021-05-31] MEDS: amLODIPine 5 MG TABLET PO SCH (09:00)
[2021-05-31] MEDS: Aspirin 81 MG TAB.CHEW PO SCH (09:01)
== END 2021-05-31 16:00 | disposition home health service (06) ==
LOC: INPPIK 05-13 22:39
PROVIDERS: ADMIT Family Medicine; ATTEND Family Medicine